=== PATIENT | male | born 1995 ===

== ENCOUNTER 2025-02-11 11:40 | Emergency (ER) | payer BC, SELFPAY ==
--- NOTE | 2025-02-11 12:07 | ED.GENMED ---
History of Present Illness
<Saida Casey PA-C - Last Filed: 02/11/25 20:54>
General
Chief Complaint: Chest Pain
Source: patient
Exam Limitations: none
Time Seen by Provider: 02/11/25 12:05
Nursing documentation reviewed up to this point in time: agreed with
History of Present Illness
History of Present Illness:
This is a 29-year-old male with no past medical history who presents emergency department today with concerns of left-sided chest pain since last night. Patient reports that when this first started, he was not doing anything specific at this time
and was not exerting himself. Patient reports that the same thing happened a week ago but the episode resolved on its own. Patient states at that time the episode associated with diaphoresis as well. Patient states he feels a pinching sensation
left-sided chest he feels some shortness of breath he says the pain is significantly worse when he takes a deep breath. He also states that he has intermittent palpitations and feels like his resting heart rate has been a lot higher recently in the
100s to 130s. Patient denies any recent long distance travel, any pain or swelling in his lower extremities, any tobacco use. Patient denies any recent hospitalizations or any recent surgeries. Of note, patient is a significant family history of
cardiac disease at a young age, his father passed at age 58 due to a heart attack. Patient does currently follow with a clark driver Dr. Negrete but is interested in possibly establishing care with a new clark driver. Denies any nausea and
vomiting, any fevers or chills, any recent sick contacts, any difficulty swallowing, any back pain.
Review of Systems
<Saida Casey PA-C - Last Filed: 02/11/25 20:54>
Review of Systems
All Other Systems: ROS reviewed and negative except as documented in HPI and ROS
Phy Exam
<Saida Casey PA-C - Last Filed: 02/11/25 20:54>
Physical Exam
Physical Exam:
General: Patient is well appearing and in no acute distress; non-toxic
Skin: Warm and dry, no rashes or lesions
Head: Normocephalic, atraumatic
Eyes: Sclera non-icteric. EOMs intact.
Cardiac: Tachycardia noted otherwise regular rhythm, no murmurs, no tenderness to palpation of external chest wall
Peripheral Vascular: No lower extremity swelling or edema
Pulm: Normal respiratory effort, no wheezes, rales, rhonchi
Abdomen: No abdominal tenderness to palpation
Neuro: CN II-XII intact, no focal neurologic deficits.
Psychiatric: Appropriate mood and affect.
Scores
<BROOK Valencia Last Filed: 02/11/25 20:54>
Heart Score for Chest Pain Patients
STEMI patient?: No
History: Moderately Suspicious
ECG: Normal
Age: </= 45 years
Risk Factors: No Risk Factors
Troponin: </= Normal Limit
Heart Score for Chest Pain Patients: 1
Heart Score Risk: 2.5% MACE over next 6 weeks
Course
<BROOK Valencia Last Filed: 02/11/25 20:54>
Orders/Labs/Results
Orders:
Orders
02/11/25 11:43
EKG [Electrocardiogram (*1)] Urgent
Reason for Study: Chest Pain
EKG- Treatment ONCE
02/11/25 12:35
CR Chest - 2 Views Urgent
Comment:
Reason For Exam: left sided chest pain, shortness of breath
02/11/25 12:41
Complete Blood Count/With Diff Urgent
Comprehensive Metabolic Panel Urgent
D-Dimer Urgent
Magnesium Urgent
Manual Differential Urgent
TSH Reflex To Free T4 Urgent
Troponin I Urgent
Abnormal Lab Results
02/11/25
12:41
MCV 76.5 L fL
(80.0-94.0)
MCH 25.3 L pg
(27.0-31.0)
Segmented Neutrophils 30 L %
(42-75)
Band Neutrophils 9 H %
(0-3)
Glucose 157 H mg/dl
(70-99)
AST 62 H U/L
(17-59)
ALT 76 H U/L
(0-50)
02/11/25 12:41
02/11/25 12:41
Vital Signs
Initial and Last Documented VS:
Initial Vital Signs
Temp Pulse Resp Pulse Ox
98.4 F 106 18 100
02/11/25 11:41 02/11/25 11:41 02/11/25 11:41 02/11/25 11:41
Last Documented Vital Signs
Temp Pulse Resp BP Pulse Ox
98.4 F 101 29 145/83 97
02/11/25 11:41 02/11/25 14:30 02/11/25 14:30 02/11/25 14:00 02/11/25 14:30
Cecillt;Gamaliel Cowan, DO - Last Filed: 02/11/25 13:41>
Orders/Labs/Results
Orders:
Orders
02/11/25 11:43
EKG [Electrocardiogram (*1)] Urgent
Reason for Study: Chest Pain
EKG- Treatment ONCE
02/11/25 12:35
CR Chest - 2 Views Urgent
Comment:
Reason For Exam: left sided chest pain, shortness of breath
02/11/25 12:41
Complete Blood Count/With Diff Urgent
Comprehensive Metabolic Panel Urgent
D-Dimer Urgent
Magnesium Urgent
Manual Differential Urgent
TSH Reflex To Free T4 Urgent
Troponin I Urgent
Abnormal Lab Results
02/11/25
12:41
MCV 76.5 L fL
(80.0-94.0)
MCH 25.3 L pg
(27.0-31.0)
Segmented Neutrophils 30 L %
(42-75)
Band Neutrophils 9 H %
(0-3)
Glucose 157 H mg/dl
(70-99)
AST 62 H U/L
(17-59)
ALT 76 H U/L
(0-50)
02/11/25 12:41
02/11/25 12:41
Vital Signs
Initial and Last Documented VS:
Initial Vital Signs
Temp Pulse Resp Pulse Ox
98.4 F 106 18 100
02/11/25 11:41 02/11/25 11:41 02/11/25 11:41 02/11/25 11:41
Last Documented Vital Signs
Temp Pulse Resp BP Pulse Ox
98.4 F 101 29 145/83 97
02/11/25 11:41 02/11/25 14:30 02/11/25 14:30 02/11/25 14:00 02/11/25 14:30
Cecillt;Saida Casey PA-C - Last Filed: 02/11/25 20:54>
MDM/Problems Addressed
Differential Diagnosis Includes:
ACS, GERD, costochondritis, PE, pleurisy
MDM/Problems Addressed:
29-year-old male presents emergency department with concerns of pinching sensation in his left chest since last night. He does have a significant family history of cardiac disease with his father dying of a heart attack at age 58. On physical exam
patient is well-appearing in no acute distress. He did have some tachycardia which patient at times feels his palpitations however his EKG demonstrates normal sinus rhythm with no arrhythmia. In light of normal D-dimer, undetectable troponin,
nonischemic EKG, do believe that outpatient follow-up is reasonable. Pain could be related to costochondritis. Patient follows with a clark driver already in light of his family history however patient is seeking a new clark driver so did provide
referral with our chest pain hotline that he could be seen promptly within the next few days. Patient stable for discharge.
Chronic conditions affecting care:
N/A
<Saida Casey PA-C - Last Filed: 02/11/25 20:54>
*Pulse Oximetry
Patient hypoxic: no
*EKG
Interpreted by ED Provider?: Yes
EKG Intrepretation Date: 02/11/25
Interpretation: normal
Comparison EKG: no comparison EKG present
Heart Rate: 95
Rate: normal
Rhythm: sinus
Pioneer: normal axis
Interval: normal interval
*Critical Care Note
Total Time (30-74mins, 75-104mins- exclusive of procedures): Not Applicable
Data Reviewed
Review of Other/Old Records Reveals: Records (No previous ER physician documentation or discharge summaries to review)
ED Attending Note
<Saida Casey PA-C - Last Filed: 02/11/25 20:54>
-
Portions of this chart may have been created with voice recognition software.� Occasional wrong word or��sound alike� substitutions may have occurred due to the inherent limitations of voice recognition software.
<Gamaliel Cowan DO - Last Filed: 02/11/25 13:41>
ED Attending Note
Patient seen and examined by attending physician: Yes
I performed the substantive portion of visit, reviewed & personally made and approve the management plan that is documented in note by myself or RAMON.: Yes
ED Attending Note:
I evaluated the patient at bedside. The patient initially described the pain as near the left axilla and as a 'pinching'. However at other times he did describes a pressure and broke out into a sweat recently. His symptoms started about a week
ago. His troponin is negative and EKG is unremarkable. He wants to see a different clark driver�will give him cardiology follow-up here.
Discharge Plan
Departure
Patient Disposition: Home (Routine Discharge)
Date of Disposition: 02/11/25
Time of Disposition: 13:41
Patient with high blood pressure during this ER visit?: Yes
Discharge Problem:
Chest pain
Instructions: Chest Pain [facility] Follow Up, BLOOD PRESSURE, Chest Pain
Referrals:
Casey Kruger MD [Family Provider] -
Activity Restrictions/Additional Instructions:
Your CBC and CMP were unremarkable. Your D-dimer was normal.
Your chest x-ray was normal.
PLEASE RETURN EMERGENCY DEPARTMENT SHOULD YOU DEVELOP ANY ACUTE WORSENING OF YOUR SYMPTOMS, FAINTING SPELLS, SHORTNESS OF BREATH, WEAKNESS IN ONE-SIDED BODY VERSUS OTHER, DIFFICULTY SPEAKING, CONFUSION, OR ANY OTHER SIGNS OR SYMPTOMS WORRISOME TO
YOU.
Interventions
Interventions:
*Risk Screen - Suicide Last Done: 02/11/25 12:57
*General Assessment Last Done: 02/11/25 12:57
*Neglect/Abuse Screening Last Done: 02/11/25 12:57
*ED- Fall Risk Assessment Last Done: 02/11/25 14:40
*ED COVID-19 Vaccine History Last Done: 02/11/25 12:57
*Nursing Disposition Last Done: 02/11/25 14:40
ED- Cardiac Assessment Last Done: 02/11/25 12:58
Discharge Date and Time
Discharge Date/Time: 02/11/25 14:40
Print Language: BELIZEAN
[2025-02-11 12:54] VITALS: BP 127/93
[2025-02-11 12:55] VITALS: BMI 41.2
[2025-02-11 12:55] LABS: Hematocrit 42.6 % (39.0-52.0); Hemoglobin 14.1 g/dL (13.0-18.0); Mean Corp Hgb Conc. 33.1 g/dL (33.0-37.0); Mean Corpuscular Hgb 25.3 pg (27.0-31.0); Mean Corpuscular Volume 76.5 fL (80.0-94.0); Mean Platelet Volume 9.7 fL (7.4-10.4); Platelet Count 155 10^3/uL (130-400); Red Blood Cell Count 5.57 10^6/uL (4.70-6.10); Red Cell Dist. Width 13.3 % (11.5-14.5); White Blood Cell Count 4.9 10^3/uL (4.8-10.8)
[2025-02-11 13:00] VITALS: BP 135/98
[2025-02-11 13:04] LABS: ALT (SGPT) 76 U/L (0-50); AST (SGOT) 62 U/L (17-59); Albumin 4.1 g/dl (3.5-5.0); Alkaline Phosphatase 54 U/L (38-126); Blood Urea Nitrogen 10 mg/dl (9-20); Carbon Dioxide 26 mmol/L (22-30); Chloride 104 mmol/L (98-107); D-Dimer 0.38 ug/mlFEU (0.00-0.50); Estimated Creatinine Clearance > 125 ml/min; Glucose 157 mg/dl (70-99); Magnesium 2.1 mg/dl (1.6-2.3); Potassium 3.9 mmol/L (3.5-5.1); Sodium 138 mmol/L (135-145); Total Bilirubin 1.1 mg/dl (0.2-1.3); Total Protein 6.8 g/dl (6.3-8.2); eGFR > 60.00
[2025-02-11 13:17] LABS: Troponin I < 0.012 ng/ml
[2025-02-11 13:24] VITALS: BP 120/89
[2025-02-11 13:31] LABS: Absolute Neutrophils -Man Diff 1.9 10^3/uL (1.4-6.5); Atypical Lymphocytes 15 %; Band Neutrophils 9 % (0-3); Lymphocytes 37 % (20-51); Monocytes 8 % (2-9); Segmented Neutrophils 30 % (42-75)
[2025-02-11 13:32] LABS: Anisocytosis 1+; Microcytosis 3+; Normal RBC Morphology No; Platelets Checked Yes; Total Cells Counted 100
[2025-02-11 14:00] VITALS: BP 145/83
== END 2025-02-11 14:40 | disposition home or self-care (01) ==
LOC: EMR 11:40
PROVIDERS: Physician Assistant; EMERGENCY PHYSICIAN Emergency Medicine; FAMILY PHYSICIAN Family Medicine
DX: R07.89 Other chest pain (principal); R03.0 Elevated blood-pressure reading, without diagnosis of hypertension
CPT/HCPCS: 99285; 71046; 80053; 83735; 84443; 84484; 85025; 85379; 93005